=== PATIENT | male | born 1965 | race American Indian/Alaskan Native ===

== ENCOUNTER 2016-12-28 22:16 | Emergency (ER) | payer SELFPAY ==
[2016-12-28] MEDS ORDERED: TYLENOL PO ONE (22:28)
[2016-12-28 22:52] LABS: Basophils % (Auto) 0.2 % (0.0-1.8); Eosinophils % (Auto) 0.1 % (0.0-4.3); Hematocrit 44.6 % (35.5-45.6); Hemoglobin 15.3 gm/dl (11.8-15.2); Mean Corpuscular HGB Conc 34 % (32-34); Mean Corpuscular Hemoglobin 31 pg (28-32); Mean Corpuscular Volume 90 fl (84-94); Platelet Count 159 K/mm3 (140-440); Red Blood Count 4.95 M/mm3 (3.65-5.03); Red Cell Distribution Width 13.1 % (13.2-15.2); White Blood Count 11.8 K/mm3 (4.5-11.0)
[2016-12-28 23:11] LABS: Anion Gap 19 mmol/L; BUN/Creatinine Ratio 23.75; Blood Urea Nitrogen 19 mg/dL (9-20); Calcium 8.2 mg/dL (8.4-10.2); Carbon Dioxide 22 mmol/L (22-30); Chloride 101.2 mmol/L (98-107); Glucose 132 mg/dL (75-100); Potassium 3.6 mmol/L (3.6-5.0); Sodium 139 mmol/L (137-145)
[2016-12-28 23:15] LABS: Bilirubin,Urine NEG (Negative); Blood,Urine NEG (Negative); Ketones,Urine 20 mg/dL (Negative); Leukocyte Esterase,Urine NEG (Negative); Mucus,Urine FEW /HPF; Nitrite,Urine NEG (Negative)
[2016-12-29] MEDS ORDERED: MOTRIN PO ONE (00:23)
--- NOTE | 2016-12-29 00:28 | Emergency Department Report ---
ED ENT HPI - General Chief complaint: Fever Stated complaint: DIFFICULTY IN BREATHING Time Seen by Provider: 12/28/16 23:28 Source: patient Mode of arrival: Ambulatory Limitations: No Limitations - History of Present Illness Initial comments: This is a 51-year-old male well-nourished with nontoxic or ill in appearance that presents with fever, shortness of breath, sore throat x1 day. Patient stated fever was at 11.2 and took 2 Aleve's this morning at 11 AM. Patient denies any chest pain, wheezing, cough, nausea, vomiting, diarrhea, difficulty breathing, numbness, tingling, stiff neck, joint pain, joint swelling, no abdominal pain. Patient describes sore throat as swallowing razor blades. Patient denies any allergies. Denies past medical history. MD complaint: sore throat, other (Fever) -: Gradual, days(s) (1) Location: throat Severity: mild Severity scale (0 -10): 6 Quality: other (swalling razer blades) Consistency: constant Improves with: none Worsens with: swallowing Associated Symptoms: fever, sore throat. denies: cough, gum swelling, toothache , pain with swallowing, tinnitus, hearing loss, discharge from ear, rhinorrhea - Related Data Previous Rx's Medication Instructions Recorded Last Taken Type Acetaminophen [Acetaminophen TAB] 650 mg PO Q6HR PRN #15 tablet 12/29/16 Unknown Rx Amoxicillin/K Clav Tab [Augmentin 1 tab PO Q12HR #20 tab 12/29/16 Unknown Rx 875 mg] Allergies Allergy/AdvReac Type Severity Reaction Status Date / Time No Known Allergies Allergy Verified 12/28/16 22:21 ED Dental HPI - General Chief complaint: Fever Stated complaint: DIFFICULTY IN BREATHING Time Seen by Provider: 12/28/16 23:28 Source: patient Mode of arrival: Ambulatory Limitations: No Limitations - Related Data Previous Rx's Medication Instructions Recorded Last Taken Type Acetaminophen [Acetaminophen TAB] 650 mg PO Q6HR PRN #15 tablet 12/29/16 Unknown Rx Amoxicillin/K Clav Tab [Augmentin 1 tab PO Q12HR #20 tab 12/29/16 Unknown Rx 875 mg] Allergies Allergy/AdvReac Type Severity Reaction Status Date / Time No Known Allergies Allergy Verified 12/28/16 22:21 ED Review of Systems ROS: Stated complaint: DIFFICULTY IN BREATHING Other details as noted in HPI Constitutional: denies: chills, fever Eyes: denies: eye pain, eye discharge, vision change ENT: throat pain. denies: ear pain, dental pain, hearing loss, epistaxis Respiratory: denies: cough, shortness of breath, SOB with exertion, SOB at rest , wheezing Cardiovascular: denies: chest pain, palpitations, dyspnea on exertion, edema, syncope, paroxysmal nocturnal dyspnea Endocrine: no symptoms reported Gastrointestinal: denies: abdominal pain, nausea, diarrhea Genitourinary: denies: urgency, dysuria Musculoskeletal: denies: back pain, joint swelling, arthralgia Skin: denies: rash, lesions Neurological: denies: headache, weakness, paresthesias Psychiatric: denies: anxiety, depression Hematological/Lymphatic: denies: easy bleeding, easy bruising ED Past Medical Hx - Past Medical History Previous Medical History?: No - Surgical History Past Surgical History?: No - Social History Smoking Status: Never Smoker Substance Use Type: None - Medications Home Medications: Home Medications Medication Instructions Recorded Confirmed Last Taken Type Acetaminophen [Acetaminophen TAB] 650 mg PO Q6HR PRN #15 tablet 12/29/16 Unknown Rx Amoxicillin/K Clav Tab [Augmentin 1 tab PO Q12HR #20 tab 12/29/16 Unknown Rx 875 mg] ED Physical Exam - General Limitations: No Limitations General appearance: alert, in no apparent distress - Head Head exam: Present: atraumatic, normocephalic, normal inspection - Eye Eye exam: Present: normal appearance, PERRL, EOMI. Absent: scleral icterus, conjunctival injection, nystagmus, periorbital swelling, periorbital tenderness Pupils: Present: normal accommodation - ENT ENT exam: Present: normal exam, mucous membranes moist, TM's normal bilaterally , normal external ear exam - Expanded ENT Exam Expanded Mouth exam: Present: normal external inspection, tongue normal. Absent: drooling, trismus, muffled voice, tongue elevation, laceration Teeth exam: Present: normal inspection Throat exam: Positive: normal inspection, tonsillar erythema, tonsillomegaly (2+ ), tonsillar exudate, other (uvula midline). Negative: R peritonsillar mass, L peritonsillar mass - Neck Neck exam: Present: normal inspection, full ROM. Absent: tenderness, meningismus, lymphadenopathy, thyromegaly - Respiratory Respiratory exam: Present: normal lung sounds bilaterally. Absent: respiratory distress, wheezes, rales, rhonchi, stridor, chest wall tenderness, accessory muscle use, decreased breath sounds, prolonged expiratory - Cardiovascular Cardiovascular Exam: Present: regular rate, normal rhythm, normal heart sounds. Absent: bradycardia, tachycardia, irregular rhythm, systolic murmur, diastolic murmur, rubs, gallop - GI/Abdominal GI/Abdominal exam: Present: soft, normal bowel sounds. Absent: distended, tenderness, guarding, rebound, rigid, diminished bowel sounds - Rectal Rectal exam: Present: deferred - Extremities Exam Extremities exam: Present: normal inspection, full ROM, normal capillary refill. Absent: tenderness, pedal edema, joint swelling, calf tenderness - Back Exam Back exam: Present: normal inspection, full ROM. Absent: tenderness, CVA tenderness (R), CVA tenderness (L), muscle spasm, paraspinal tenderness, vertebral tenderness, rash noted - Neurological Exam Neurological exam: Present: alert, oriented X3, CN II-XII intact, normal gait - Psychiatric Psychiatric exam: Present: normal affect, normal mood. Absent: depressed, agitated, anxious, flat affect, manic, homicidal ideation, suicidal ideation - Skin Skin exam: Present: warm, dry, intact, normal color. Absent: rash ED Course Vital Signs 12/28/16 12/29/16 12/29/16 22:22 01:23 01:54 Temperature 101.5 F H 100.4 F H 100.4 F H Pulse Rate 122 H 98 H Respiratory 26 H 18 Rate Blood Pressure 137/79 Blood Pressure 121/74 [Right] O2 Sat by Pulse 95 96 Oximetry ED Medical Decision Making - Lab Data Result diagrams: 12/28/16 22:40 12/28/16 22:40 - Medical Decision Making Ed course: This is a 51-year-old male that presents with tonsillitis 1- after my physical exam, due to slight SOB with fever a chest x-ray has been obtained. CXR results has been notified to the patient. no furthur questions noted by the patient. 2- patient received acetaminophen and Tylenol for fever. 3- patient received Augmentin 875 mg for 10 days and acetaminophen for fever 4- patient was instructed to follow-up with her primary care doctor in 3-5 days or if symptoms worsen such as chest pain, shortness of breath, nausea, vomiting , numbness or tingling reported back to emergency room as soon as possible 5- at time time of discharge, the patient does not seem toxic or ill in appearance. No acute signs of distress noted. Patient agrees to discharge treatment plan of care. No further questions noted by the patient. 6- UA, CBC, and BMP has been obtained with slight elevation of WBC 11.8. 7- Pt received Rocephin IM in the ED. Critical care attestation.: If time is entered above; I have spent that time in minutes in the direct care of this critically ill patient, excluding procedure time. ED Disposition Clinical Impression: Tonsillitis with exudate Disposition: TO HOME OR SELFCARE Is pt being admited?: No Does the pt Need Aspirin: No Condition: Stable Instructions: Acetaminophen (By mouth), Amoxicillin/Clavulanate Potassium (By mouth), Fever in Adults (ED), Tonsillitis (ED) Additional Instructions: Follow-up with your primary care doctor in 24 hours or if symptoms worsen such as shortness of breath, chest pain, stiff neck, numbness, tingling, abdominal pain, fever, chills report back to the emergency room as soon as possible. Status full course of antibiotics as prescribed. He may take acetaminophen as prescribed as needed for your fever. Prescriptions: Acetaminophen [Acetaminophen TAB] 650 mg PO Q6HR PRN #15 tablet PRN Reason: Pain Amoxicillin/K Clav Tab [Augmentin 875 mg] 1 tab PO Q12HR #20 tab Referrals: ROMI TELLO JR, MD [Staff Physician] - 3-5 Days [facility] [Outside] - 3-5 Days PRIMARY CAREMD [Primary Care Provider] - 24 Hours [facility] [Outside] - 24 Hours Forms: Work/School Release Form(ED)
--- NOTE | 2016-12-29 01:01 | XRay Report ---
FINAL REPORT EXAM: XR CHEST ROUTINE 2V HISTORY: fever with sob TECHNIQUE: 2 views of the chest. PRIORS: None. FINDINGS: The cardiomediastinal silhouette appears normal. The lungs are clear. The bones and soft tissues are unremarkable. IMPRESSION: No evidence of acute cardiopulmonary disease
[2016-12-29 01:23] VITALS: BP 121/74
[2016-12-29] MEDS ORDERED: XYLOCAINE 1% MPF 5 mL INFILTRATI ONE (02:07)
[2016-12-29] MEDS ORDERED: ROCEPHIN IM ONE (02:07)
== END 2016-12-29 02:40 | disposition home or self-care (01) ==
LOC: ED 22:16
DX: J03.90 Acute tonsillitis, unspecified (principal)
CPT/HCPCS: 36415; 71020; 80048; 81001; 82140; 85025; 96372; 99284; J0696